=== PATIENT | female | born 1955 | race African-American/Black ===

== ENCOUNTER → 2023-06-01 16:45 | Outpatient (REF) | payer MEDICARE, OTHER, SELFPAY | LOC: HWWDC 16:45 | PROVIDERS: ATTENDING PHYSICIAN Internal Medicine | DX: Z12.31 Encounter for screening mammogram for malignant neoplasm of breast (principal) | CPT/HCPCS: 77063; 77067 ==

== ENCOUNTER → 2023-10-06 10:03 | Outpatient (REF) | payer MEDICARE, OTHER, SELFPAY | LOC: HWRAD 10:03 | PROVIDERS: ATTENDING PHYSICIAN Internal Medicine; FAMILY PHYSICIAN Internal Medicine | DX: M25.511 Pain in right shoulder (principal) | CPT/HCPCS: 73030 ==

== ENCOUNTER → 2024-03-14 10:30 | Outpatient (REF) | payer MEDICARE, OTHER, SELFPAY | LOC: RAD 10:30 | PROVIDERS: ATTENDING PHYSICIAN Psychiatry & Neurology Neurology | DX: M54.9 Dorsalgia, unspecified (principal); G47.00 Insomnia, unspecified; F32.A Depression, unspecified; F43.9 Reaction to severe stress, unspecified; M54.2 Cervicalgia | CPT/HCPCS: 78306; A9503 ==

== ENCOUNTER 2024-05-15 06:20 | Day surgery (SDC) | payer MEDICARE, OTHER, SELFPAY | END 2024-05-15 13:06 | disposition home or self-care (01) | LOC: GI 06:20 | PROVIDERS: ATTENDING PHYSICIAN Internal Medicine Gastroenterology | DX: Z12.11 Encounter for screening for malignant neoplasm of colon (principal); K64.8 Other hemorrhoids; K22.89 Other specified disease of esophagus; D12.2 Benign neoplasm of ascending colon; K29.70 Gastritis, unspecified, without bleeding; Z87.11 Personal history of peptic ulcer disease; Z86.0100 Personal history of colon polyps, unspecified | CPT/HCPCS: 45390; 43239; 88305; 88342 ==

== ENCOUNTER 2024-05-15 16:44 | Emergency (ER) | payer MEDICARE, OTHER, SELFPAY ==
[2024-05-15 16:46] VITALS: BP 141/75
[2024-05-15 17:02] VITALS: BMI 24.6
[2024-05-15 17:09] VITALS: BP 98/62
[2024-05-15 17:15] VITALS: BP 108/76
[2024-05-15] MEDS: TYLENOL 1000 MG PO (17:18)
--- NOTE | 2024-05-15 17:21 | ED.GENMED ---
History of Present Illness
<Coral May REGRINDER - Last Filed: 05/15/24 21:40>
General
Chief Complaint: Rectal Bleeding
Source: patient
Exam Limitations: none
Time Seen by Provider: 05/15/24 16:56
Nursing documentation reviewed up to this point in time: agreed with
History of Present Illness
History of Present Illness:
69 yo female with hx of Chronic Pain on Percocet TID, Baclofen, Gabapentin, Lidocaine patch, Remeron HS, had colonoscopy [address] Hauser, was told she has a large polyp and only part of it was able to be removed. Went home, ate lunch,
had a bloody BM (picture of dark blood and large amount sediment/clot in toilet). Notified GI of this. Then had two more similar episodes and came here. She had a 4th episode in [place] 10 minutes ago. In past hour she has developed generalized crampy
abdominal pains. Denies CP, SOB, lightheadedness.
Past History
<Coral May, REGRINDER - Last Filed: 05/15/24 21:40>
Past History
ED Past Medical History: Other (chronic neck and back pain on oxy and baclofen, Neurontin, Lidocaine patch)
ED Past Surgical History: Gynecological and Orthopedic
Social History
Tobacco: Smoker
Alcohol: None
Personal: Single
Living: with roommate
Employment: Retired
Review of Systems
<Coral May, REGRINDER - Last Filed: 05/15/24 21:40>
Review of Systems
Allergies reviewed?: Yes
All Other Systems: ROS reviewed and negative except as documented in HPI and ROS
Constitutional: Denies fever or fatigue
Respiratory: Denies trouble breathing
Cardiac: Denies chest pain
ABD/GI: Reports abdominal pain (cramping pains) and bloody stools; Denies nausea or vomiting
: Denies dysuria or difficulty voiding
Musculoskeletal: Reports neck pain (Chronic) and back pain (Chronic)
Skin: Reports no symptoms
Neurological: Denies dizzy or weakness
Phy Exam
<Coral May, REGRINDER - Last Filed: 05/15/24 21:40>
Physical Exam
Physical Exam:
GENERAL: No acute distress. A&Ox3.
CONSTITUTIONAL: Afebrile.
EYES: clear, conjunctivae normal
ENMT: moist mucus membranes
RESPIRATORY: Regular respirations, nonlabored, lungs clear.
CARDIOVASCULAR: Regular rate and rhythm, no murmurs, no rubs.
GI: Soft, generally mildly tender to palpation, nondistended, normal BS
MUSCULOSKELETAL: Moves with ease. Well perfused.
SKIN: Warm, dry, pink
PSYCH: Normal mood and affect. Well kept, interactive and appropriate
NEUROLOGIC: Awake, alert and oriented. No focal neurological deficits
Course
<Coral May, REGRINDER - Last Filed: 05/15/24 21:40>
Orders/Labs/Results
Orders:
Orders
05/15/24 17:11
Acetaminophen [Tylenol] 1,000 mg PO NOW STA
05/15/24 17:22
Type+Screen Urgent
Complete Blood Count/With Diff Urgent
Comprehensive Metabolic Panel Urgent
05/15/24 18:12
ABO2 Urgent
BBK Wristband Number:
Associate notified that ABO2 has been ordered: [id number]
Date: 05/15/24
Time: 17:34
Senior Investment Manager ID: [id number]
Abnormal Lab Results
05/15/24
17:22
MPV 11.7 H fL
(7.4-10.4)
Chloride 108 H mmol/L
(98-107)
Calcium 10.7 H mg/dl
(8.4-10.2)
Total Protein 8.4 H g/dl
(6.3-8.2)
Albumin 5.3 H g/dl
(3.5-5.0)
05/15/24 17:22
05/15/24 17:22
Vital Signs
Initial and Last Documented VS:
Initial Vital Signs
Temp Pulse Resp BP Pulse Ox
98.0 F 107 20 141/75 98
05/15/24 16:46 05/15/24 16:46 05/15/24 16:46 05/15/24 16:46 05/15/24 16:46
Last Documented Vital Signs
Temp Pulse Resp BP Pulse Ox
98.0 F 98 20 98/70 98
05/15/24 16:46 05/15/24 18:50 05/15/24 16:46 05/15/24 18:00 05/15/24 18:51
Enedelialt;Chris Short, DO - Last Filed: 05/15/24 17:47>
Orders/Labs/Results
Orders:
Orders
05/15/24 17:11
Acetaminophen [Tylenol] 1,000 mg PO NOW STA
05/15/24 17:22
Type+Screen Urgent
Complete Blood Count/With Diff Urgent
Comprehensive Metabolic Panel Urgent
05/15/24 18:12
ABO2 Urgent
BBK Wristband Number:
Associate notified that ABO2 has been ordered: [id number]
Date: 05/15/24
Time: 17:34
Senior Investment Manager ID: [id number]
Abnormal Lab Results
05/15/24
17:22
MPV 11.7 H fL
(7.4-10.4)
Chloride 108 H mmol/L
(98-107)
Calcium 10.7 H mg/dl
(8.4-10.2)
Total Protein 8.4 H g/dl
(6.3-8.2)
Albumin 5.3 H g/dl
(3.5-5.0)
05/15/24 17:22
05/15/24 17:22
Vital Signs
Initial and Last Documented VS:
Initial Vital Signs
Temp Pulse Resp BP Pulse Ox
98.0 F 107 20 141/75 98
05/15/24 16:46 05/15/24 16:46 05/15/24 16:46 05/15/24 16:46 05/15/24 16:46
Last Documented Vital Signs
Temp Pulse Resp BP Pulse Ox
98.0 F 98 20 98/70 98
05/15/24 16:46 05/15/24 18:50 05/15/24 16:46 05/15/24 18:00 05/15/24 18:51
<Coral May, REGRINDER - Last Filed: 05/15/24 21:40>
MDM/Problems Addressed
Differential Diagnosis Includes:
Lower GI bleed, bleeding polyp
MDM/Problems Addressed:
69 yo female with hx of Chronic Pain on Percocet TID, Baclofen, Gabapentin, Lidocaine patch, Remeron HS, had colonoscopy [address] Hauser, was told she has a large polyp and only part of it was able to be removed. Went home, ate lunch,
had a bloody BM (picture of dark blood and large amount sediment/clot in toilet). Notified GI of this. Then had two more similar episodes and came here. She had a 4th episode in [place] 10 minutes ago. In past hour she has developed generalized crampy
abdominal pains. Denies CP, SOB, lightheadedness.
CBC, CMP normal
Vital signs stable
6:45 PM:
Patient has had no further episodes since 4:45 PM
Initially complained of generalized abdominal cramping, this has subsided
Consulted GI Dr. Can who states if no further bleeding, hemodynamic stable then okay to discharge to home.
CC'd Dr. Hauser on the text
Pt stable for discharge
9:00 p.m.
Pt called back, just had another bloody stool. Informed to return to be admitted which she says she will do.
ED Attending Note
<Coral May REGRINDER - Last Filed: 05/15/24 21:40>
-
Portions of this chart may have been created with voice recognition software.� Occasional wrong word or��sound alike� substitutions may have occurred due to the inherent limitations of voice recognition software.
<Chris Short DO - Last Filed: 05/15/24 17:47>
ED Attending Note
Patient seen and examined by attending physician: Yes
I performed the substantive portion of visit, reviewed & personally made and approve the management plan that is documented in note by myself or HORACE.: Yes
ED Attending Note:
Seen with REGRINDER agree with assessment and plan status post C-scope, with rectal bleeding
Discharge Plan
Departure
Patient Disposition: Home (Routine Discharge)
Date of Disposition: 05/15/24
Time of Disposition: 18:48
Patient with high blood pressure during this ER visit?: No
Condition: Good
Discharge Problem:
RB (rectal bleeding)
Instructions: Bloody Stools, Adult ED
Prescriptions:
No Action
gabapentin 600 mg Tablet
600 mg PO BID
lidocaine 4 % Adhesive Patch,Medicated
1 patch TOPICAL DAILYPRN PRN (Reason: mild pain)
oxycodone-acetaminophen 5-325 mg Tablet
1 tab PO TID
baclofen 10 mg Tablet
10 mg PO BID
mirtazapine 15 mg Tablet
15 mg PO HS
hydroxyzine pamoate 25 mg Capsule
25 mg PO BID
Referrals:
Jayne Hauser MD [Active] - Tomorrow
Bhavin Bustillos MD [Family Provider] -
Activity Restrictions/Additional Instructions:
As we discussed, there is no sign of significant bleeding according to your blood work today.
Your blood pressure is stable
I spoke with the GI case consultant doctor who agrees, you're ok to go home.
Don't take Pepto Bismol as it can turn your stool black and cloud any further bleeding.
Maalox would be ok
Call Dr. Willis office tomorrow and report if you've had any further bleeding.
Return here immediately for worsening rectal bleeding, worsening abdominal pain, feeling lightheaded, or feeling worse in any way
Interventions
Interventions:
*Risk Screen - Suicide Last Done: 05/15/24 16:46
*General Assessment Last Done: 05/15/24 17:10
*Neglect/Abuse Screening Last Done: 05/15/24 17:10
*ED- Fall Risk Assessment Last Done: 05/15/24 17:10
*ED COVID-19 Vaccine History Last Done: 05/15/24 17:10
*Nursing Disposition Last Done: 05/15/24 19:05
TG-Ejyelm-Tyrnldbsxw Assessment Last Done: 05/15/24 17:10
ED- Cardiac Assessment Last Done: 05/15/24 17:10
ED- Pulmonary Assessment Last Done: 05/15/24 17:10
Discharge Date and Time
Discharge Date/Time: 05/15/24 19:05
Print Language: IVORIAN
[2024-05-15 17:32] LABS: % Basophils 0.6 % (0-2); % Eosinophils 1.6 % (0-6); % Immature Granulocytes 0.3 % (0-0.5); % Lymphocytes 41.5 % (20.5-51.1); % Monocytes 9.1 % (1.7-9.3); % Neutrophils 46.9 % (42.2-75.2); Absolute Eosinophils 0.1 10^3/uL (0-0.7); Absolute Lymphocytes 2.8 10^3/uL (1.2-3.4); Absolute Monocytes 0.6 10^3/uL (0.1-0.6); Absolute Neutrophils 3.2 10^3/uL (1.4-6.5); Hematocrit 40.5 % (37.0-47.0); Hemoglobin 13.8 g/dL (12.0-16.0); Mean Corp Hgb Conc. 34.1 g/dL (33.0-37.0); Mean Corpuscular Hgb 30.1 pg (27.0-31.0); Mean Corpuscular Volume 88.2 fL (81.0-99.0); Mean Platelet Volume 11.7 fL (7.4-10.4); Nucleated Red Blood Cells % 0 %; Platelet Count 250 10^3/uL (130-400); Red Blood Cell Count 4.59 10^6/uL (4.20-5.40); Red Cell Dist. Width 13.5 % (11.5-14.5); White Blood Cell Count 6.8 10^3/uL (4.8-10.8)
[2024-05-15 17:47] LABS: ALT (SGPT) 20 U/L (0-35); AST (SGOT) 22 U/L (14-36); Albumin 5.3 g/dl (3.5-5.0); Alkaline Phosphatase 122 U/L (38-126); Blood Urea Nitrogen 11 mg/dl (7-17); Calcium 10.7 mg/dl (8.4-10.2); Carbon Dioxide 22 mmol/L (22-30); Chloride 108 mmol/L (98-107); Estimated Creatinine Clearance 68 ml/min; Glucose 99 mg/dl (70-99); Potassium 4.2 mmol/L (3.5-5.1); Sodium 141 mmol/L (135-145); Total Bilirubin 0.5 mg/dl (0.2-1.3); Total Protein 8.4 g/dl (6.3-8.2); eGFR > 60.00
[2024-05-15 18:00] VITALS: BP 98/70
== END 2024-05-15 19:05 | disposition home or self-care (01) ==
LOC: EMR 16:44
PROVIDERS: Registered Nurse; EMERGENCY PHYSICIAN Emergency Medicine; FAMILY PHYSICIAN Psychiatry & Neurology Neurology
DX: K92.1 Melena (principal); F17.200 Nicotine dependence, unspecified, uncomplicated; Z79.891 Long term (current) use of opiate analgesic
CPT/HCPCS: 99283; 88305; 80053; 85025; 86850; 86900; 86901; 88342

== ENCOUNTER 2024-05-15 21:26 | Emergency (ER) | payer MEDICARE, OTHER, SELFPAY ==
[2024-05-15 21:28] VITALS: BP 124/78
--- NOTE | 2024-05-15 21:41 | ED.GENMED ---
History of Present Illness
General
Chief Complaint: Rectal Bleeding
Source: patient
Exam Limitations: none
Time Seen by Provider: 05/15/24 21:40
Nursing documentation reviewed up to this point in time: agreed with
History of Present Illness
History of Present Illness:
69-year-old female who was here earlier tonight for rectal bleeding after colonoscopy earlier today called me back at 9 PM saying she had another large bloody stool. I informed her to come in to be admitted
Past History
Past History
ED Past Medical History: Other (chronic neck and back pain on oxy and baclofen, Neurontin, Lidocaine patch)
ED Past Surgical History: Gynecological and Orthopedic
Social History
Tobacco: Smoker
Alcohol: None
Personal: Single
Living: with roommate
Employment: Retired
Review of Systems
Review of Systems
Allergies reviewed?: Yes
All Other Systems: ROS reviewed and negative except as documented in HPI and ROS
Constitutional: Denies fever
Respiratory: Denies trouble breathing
Cardiac: Denies chest pain
ABD/GI: Reports bloody stools; Denies abdominal pain, nausea or vomiting
: Denies dysuria, frequency or difficulty voiding
Musculoskeletal: Reports no symptoms
Skin: Reports no symptoms
Neurological: Reports no symptoms
Phy Exam
Physical Exam
Physical Exam:
GENERAL: No acute distress. A&Ox3.
CONSTITUTIONAL: Afebrile.
EYES: clear, conjunctivae normal
ENMT: moist mucus membranes, Pharynx nl
RESPIRATORY: Regular respirations, nonlabored, lungs clear.
CARDIOVASCULAR: Regular rate and rhythm, no murmurs, no rubs.
GI: Soft, nontender, normal BS
MUSCULOSKELETAL: Moves with ease. Well perfused.
SKIN: Warm, dry, pink
PSYCH: Normal mood and affect. Well kept, interactive and appropriate
NEUROLOGIC: Awake, alert and oriented. No focal neurological deficits
Course
Orders/Labs/Results
Orders:
Orders
05/15/24 21:46
Consult Gastroenterology [GASTROINTESTINAL CONSULT] Urgent
Consulting Provider: Greg Fuentes
Was physician already notified: Yes
Reason for consult: Rectal bleed post colonoscopy
Vital Signs
Initial and Last Documented VS:
Initial Vital Signs
Temp Pulse Resp BP Pulse Ox
98.2 F 102 18 124/78 98
05/15/24 21:28 05/15/24 21:28 05/15/24 21:28 05/15/24 21:28 05/15/24 21:28
Last Documented Vital Signs
Temp Pulse Resp BP Pulse Ox
98.2 F 102 18 124/78 98
05/15/24 21:28 05/15/24 21:28 05/15/24 21:28 05/15/24 21:28 05/15/24 21:28
MDM/Problems Addressed
MDM/Problems Addressed:
69-year-old female who was here earlier tonight for rectal bleeding after colonoscopy earlier today called me back at 9 PM saying she had another large bloody stool. I informed her to come in to be admitted
Hospitalist notified of admission, GI notified.
Pt is stable.
10:30 p.m.
Pt was in room 3, she told Charge nurse she wanted to leave
Charge nurse Ulices just informed me pt left AMA.
*Critical Care Note
Total Time (30-74mins, 75-104mins- exclusive of procedures): Not Applicable
ED Attending Note
-
Portions of this chart may have been created with voice recognition software.� Occasional wrong word or��sound alike� substitutions may have occurred due to the inherent limitations of voice recognition software.
Discharge Plan
Departure
Patient Disposition: Admit
Date of Disposition: 05/15/24
Time of Disposition: 21:44
Admit to: Med/Surg
Presentation/result/management discussed w/ accepting MD/DO: Hospitalist
Condition: Fair
Discharge Problem:
RB (rectal bleeding)
Prescriptions:
No Action
gabapentin 600 mg Tablet
600 mg PO BID
lidocaine 4 % Adhesive Patch,Medicated
1 patch TOPICAL DAILYPRN PRN (Reason: mild pain)
oxycodone-acetaminophen 5-325 mg Tablet
1 tab PO TID
baclofen 10 mg Tablet
10 mg PO BID
mirtazapine 15 mg Tablet
15 mg PO HS
hydroxyzine pamoate 25 mg Capsule
25 mg PO BID
Interventions
Interventions:
*Risk Screen - Suicide Last Done: 05/15/24 21:28
*General Assessment Last Done: 05/15/24 21:28
*Neglect/Abuse Screening Last Done: 05/15/24 21:28
*ED- Fall Risk Assessment Last Done: 05/15/24 21:28
*ED COVID-19 Vaccine History Last Done: 05/15/24 21:28
Discharge Date and Time
Print Language: JAPANESE
== END 2024-05-15 22:39 | disposition left against medical advice (07) ==
LOC: EMR 21:26
PROVIDERS: CONSULT PHYSICIAN Internal Medicine Gastroenterology; EMERGENCY PHYSICIAN Emergency Medicine
DX: K92.1 Melena (principal); F17.200 Nicotine dependence, unspecified, uncomplicated
CPT/HCPCS: 99282

== ENCOUNTER → 2024-06-26 11:10 | Outpatient (REF) | payer MEDICARE, OTHER, SELFPAY ==
[2024-06-26 15:55] LABS: % Basophils 0.5 % (0-2); % Eosinophils 0.9 % (0-6); % Immature Granulocytes 0.4 % (0-0.5); % Lymphocytes 25.1 % (20.5-51.1); % Monocytes 8.4 % (1.7-9.3); % Neutrophils 64.7 % (42.2-75.2); Absolute Basophils 0.1 10^3/uL (0-0.2); Absolute Eosinophils 0.1 10^3/uL (0-0.7); Absolute Lymphocytes 2.4 10^3/uL (1.2-3.4); Absolute Monocytes 0.8 10^3/uL (0.1-0.6); Absolute Neutrophils 6.1 10^3/uL (1.4-6.5); Hematocrit 39.2 % (37.0-47.0); Hemoglobin 13.5 g/dL (12.0-16.0); Mean Corp Hgb Conc. 34.4 g/dL (33.0-37.0); Mean Corpuscular Hgb 30.2 pg (27.0-31.0); Mean Corpuscular Volume 87.7 fL (81.0-99.0); Mean Platelet Volume 12.1 fL (7.4-10.4); Nucleated Red Blood Cells % 0 %; Platelet Count 178 10^3/uL (130-400); Red Blood Cell Count 4.47 10^6/uL (4.20-5.40); Red Cell Dist. Width 13.2 % (11.5-14.5); White Blood Cell Count 9.5 10^3/uL (4.8-10.8)
[2024-06-26 16:05] LABS: Erythrocyte Sed Rate 2 mm/hour (0-20)
[2024-06-26 16:06] LABS: C-Reactive Protein < 5.00 mg/L (0.0-10.00)
[2024-06-26 16:10] LABS: ALT (SGPT) 18 U/L (0-35); AST (SGOT) 21 U/L (14-36); Albumin 4.9 g/dl (3.5-5.0); Alkaline Phosphatase 136 U/L (38-126); Blood Urea Nitrogen 14 mg/dl (7-17); Calcium 10.3 mg/dl (8.4-10.2); Carbon Dioxide 21 mmol/L (22-30); Chloride 111 mmol/L (98-107); Glucose 88 mg/dl (70-99); Potassium 4.2 mmol/L (3.5-5.1); Sodium 142 mmol/L (135-145); Total Bilirubin 0.5 mg/dl (0.2-1.3); Total Protein 7.7 g/dl (6.3-8.2); eGFR > 60.00
[2024-06-26 16:36] LABS: TSH 1.09 uIU/ml (0.47-4.68)
[2024-06-26 17:07] LABS: Creatine Phosphokinase 74 U/L (30-135)
[2024-06-27 13:23] LABS: Rheumatoid Agglutinin Less Than 10 IU (<10 IU)
[2024-06-29 02:12] LABS: CCP Antibody IgG/IgA 2 Units (0-19)
[2024-06-29 03:15] LABS: ANA, IgG Reflex to HEp-2 None Detected (None Detected)
== END ==
LOC: HWLAB 11:10
PROVIDERS: ATTENDING PHYSICIAN Student in an Organized Health Care Education/Training Program
DX: M25.50 Pain in unspecified joint (principal); R53.82 Chronic fatigue, unspecified; Z13.1 Encounter for screening for diabetes mellitus; Z13.220 Encounter for screening for lipoid disorders
CPT/HCPCS: 80053; 82550; 84443; 85025; 85652; 86038; 86140; 86200; 86430

== ENCOUNTER 2024-07-19 12:27 | Emergency (ER) | payer MEDICARE, OTHER, SELFPAY ==
[2024-07-19 12:29] VITALS: BP 128/80
--- NOTE | 2024-07-19 12:42 | ED.GENMED ---
History of Present Illness
General
Chief Complaint: Flank Pain
Source: patient
Exam Limitations: none
Time Seen by Provider: 07/19/24 12:36
Nursing documentation reviewed up to this point in time: agreed with
History of Present Illness
History of Present Illness:
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 Denies fever/chills, denies abdominal pain
Past History
Past History
ED Past Medical History: Other (chronic neck and back pain on oxy and baclofen, Neurontin, Lidocaine patch)
ED Past Surgical History: Gynecological and Orthopedic
Social History
Tobacco: Smoker
Alcohol: None
Personal: Single
Living: with roommate
Employment: Retired
Review of Systems
Review of Systems
Allergies reviewed?: Yes
All Other Systems: ROS reviewed and negative except as documented in HPI and ROS
Constitutional: Denies fever or chills
: Reports flank pain (left); Denies dysuria, frequency, difficulty voiding or urgency
Musculoskeletal: Reports other (chronic back pain)
Skin: Reports no symptoms
Phy Exam
Physical Exam
Physical Exam:
GENERAL: Mild distress due to left flank pain, difficulty staying still due to the pain. A&Ox3.
CONSTITUTIONAL: Afebrile.
EYES: clear, conjunctivae normal
ENMT: moist mucus membranes
RESPIRATORY: Regular respirations, nonlabored, lungs clear.
CARDIOVASCULAR: Regular rate and rhythm, no murmurs, no rubs.
GI: Soft, nontender, normal BS
MUSCULOSKELETAL: Left flank pain. Moves with ease. Well perfused.
SKIN: Warm, dry, normal
PSYCH: Anxious mood and affect. Well kept, interactive and appropriate
NEUROLOGIC: Awake, alert and oriented. No focal neurological deficits
Course
Orders/Labs/Results
Orders:
Orders
07/19/24 12:42
CT Abd/pel Without Iv Or Oral Urgent
Comment:
Reason For Exam: L flank pain
0.9% Sodium Chloride 500 ml [Nss] 500 ml IV BOLUS
HYDROmorphone [Dilaudid] 0.5 mg IV NOW STA
Ketorolac [Toradol] 15 mg IV NOW STA
07/19/24 13:12
Complete Blood Count/With Diff Urgent
Comprehensive Metabolic Panel Urgent
Urinalysis Reflex To Culture Urgent
Date Specimen was Collected: 07/19/24
Time Specimen was Collected: 12:59
Urine Microscopic Reflex Cult Urgent
Abnormal Lab Results
07/19/24
13:12
RBC 4.09 L 10^6/uL
(4.20-5.40)
Hct 36.1 L %
(37.0-47.0)
MPV 11.9 H fL
(7.4-10.4)
Chloride 111 H mmol/L
(98-107)
Carbon Dioxide 31 H mmol/L
(22-30)
Glucose 105 H mg/dl
(70-99)
Ur Occult Blood Reflex 4+ A
(Negative)
Urine RBC >100 A /HPF
(0-2)
Urine Albumin (Reflex) 2+ A
(Neg - Trace)
07/19/24 13:12
07/19/24 13:12
Vital Signs
Initial and Last Documented VS:
Initial Vital Signs
Temp Pulse Resp BP Pulse Ox
98.4 F 92 15 128/80 98
07/19/24 12:29 07/19/24 12:29 07/19/24 12:29 07/19/24 12:29 07/19/24 12:29
Last Documented Vital Signs
Temp Pulse Resp BP Pulse Ox
98.4 F 76 25 91/77 98
07/19/24 12:29 07/19/24 14:03 07/19/24 14:03 07/19/24 14:03 07/19/24 14:03
MDM/Problems Addressed
Differential Diagnosis Includes:
kidney stone, UTI
MDM/Problems Addressed:
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 Denies fever/chills, denies abdominal pain
Afebrile, states pain 10/10, can't sit still. Is nauseous
1:45 p.m.
CBC, CMP with no clinically significant abnormality
UA with 4+ blood and 2+ albumin, negative leukocytes or nitrites, >100 RBC, no WBC
Good pain relief after medications
CT abd/pelvis plain: Radiology report read: IMPRESSION:
1. MODERATE ACUTE LEFT HYDROURETERONEPHROSIS secondary to a 4 mm obstructing calculus at the left ureterovesical junction.
2. Mild acute diverticulitis in the proximal sigmoid colon.
3. Moderate chronic colitis (possibly secondary to chronic infection or inflammatory bowel disease).
4. Mild hepatomegaly.
5. 2.1 cm subserosal uterine leiomyoma.
6. 2.0 cm right adrenal adenoma.
7. Moderate lower lumbar facet joint arthrosis.
Reviewed result w patient and gave her copy of report.
Patient states she is not surprised about the mild diverticulitis, states she had a colonoscopy recently with a polyp that was 'hard to get,' she states she has a follow-up appointment with Dr. Manzo GI in 1 week.
1:15 PM: Patient remains pain-free. Ambulated out with normal gait.
*Critical Care Note
Total Time (30-74mins, 75-104mins- exclusive of procedures): Not Applicable
ED Attending Note
-
Portions of this chart may have been created with voice recognition software.� Occasional wrong word or��sound alike� substitutions may have occurred due to the inherent limitations of voice recognition software.
Discharge Plan
Departure
Patient Disposition: Home (Routine Discharge)
Date of Disposition: 07/19/24
Time of Disposition: 14:07
Patient with high blood pressure during this ER visit?: No
Condition: Good
Discharge Problem:
Calculus of distal left ureter
Instructions: Kidney Stones (DC), How to Strain Your Urine, Narcotic Pain Medication
Prescriptions:
New
hydrocodone-acetaminophen 5-325 mg tablet
1 tab PO Q6H PRN (Reason: Pain) Qty: 5 0RF
No Action
gabapentin 600 mg Tablet
600 mg PO BID
lidocaine 4 % Adhesive Patch,Medicated
1 patch TOPICAL DAILYPRN PRN (Reason: mild pain)
oxycodone-acetaminophen 5-325 mg Tablet
1 tab PO TID
baclofen 10 mg Tablet
10 mg PO BID
mirtazapine 15 mg Tablet
15 mg PO HS
hydroxyzine pamoate 25 mg Capsule
25 mg PO BID
Referrals:
Jovany, GI doctor [Other] - Keep scheduled appt
Brandan Bui MD [Family Provider] -
Pedro Luis Cali MD [Active] - Call in 1-3 days for appt
Activity Restrictions/Additional Instructions:
As we discussed, ibuprofen 600 mg for mild to moderate pain and I sent a prescription to your pharmacy for hydrocodone to use if needed for worse pain.
Call the urology office Monday morning and asked them when they want to see you for follow-up.
Keep your appointment with your GI doctor as your CAT scan showed you had mild diverticulitis.
Return here immediately for fever, chills, vomiting, worsening pain or feeling sicker in any way
Interventions
Interventions:
*Risk Screen - Suicide Last Done: 07/19/24 12:29
*General Assessment Last Done: 07/19/24 12:29
*Neglect/Abuse Screening Last Done: 07/19/24 12:29
*ED- Fall Risk Assessment Last Done: 07/19/24 13:09
*ED COVID-19 Vaccine History Last Done: 07/19/24 13:09
*Nursing Disposition Last Done: 07/19/24 14:15
AE-Qwuikn-Faspcqwopm Assessment Last Done: 07/19/24 12:50
ED-Female Genitourinary Assessment Last Done: 07/19/24 12:50
Discharge Date and Time
Discharge Date/Time: 07/19/24 14:48
Print Language: CITIZEN OF [place]
[2024-07-19] MEDS: DILAUDID 0.5 MG IV (13:04)
[2024-07-19] MEDS: NSS 500 IV (13:05)
[2024-07-19] MEDS: TORADOL 15 MG IV (13:05)
[2024-07-19 13:09] VITALS: BMI 25.7
[2024-07-19 13:12] VITALS: BP 117/64
[2024-07-19 13:28] LABS: % Basophils 0.5 % (0-2); % Eosinophils 0.8 % (0-6); % Immature Granulocytes 0.5 % (0-0.5); % Lymphocytes 35.3 % (20.5-51.1); % Monocytes 7.1 % (1.7-9.3); % Neutrophils 55.8 % (42.2-75.2); Absolute Eosinophils 0.1 10^3/uL (0-0.7); Absolute Lymphocytes 2.2 10^3/uL (1.2-3.4); Absolute Monocytes 0.5 10^3/uL (0.1-0.6); Absolute Neutrophils 3.5 10^3/uL (1.4-6.5); Hematocrit 36.1 % (37.0-47.0); Mean Corp Hgb Conc. 33.2 g/dL (33.0-37.0); Mean Corpuscular Hgb 29.3 pg (27.0-31.0); Mean Corpuscular Volume 88.3 fL (81.0-99.0); Mean Platelet Volume 11.9 fL (7.4-10.4); Nucleated Red Blood Cells % 0 %; Platelet Count 204 10^3/uL (130-400); Red Blood Cell Count 4.09 10^6/uL (4.20-5.40); Red Cell Dist. Width 13.1 % (11.5-14.5); White Blood Cell Count 6.3 10^3/uL (4.8-10.8)
[2024-07-19 13:36] LABS: Urine Albumin 2+ (Neg - Trace); Urine Bilirubin Negative (Negative); Urine Character Slightly Cloudy (Clear); Urine Color Yellow; Urine Glucose Negative (Negative); Urine Ketone Negative (Negative); Urine Leukocyte Negative (Negative); Urine Nitrite Negative (Negative); Urine Occult Blood 4+ (Negative); Urine Urobilinogen Negative (Neg - 1+)
[2024-07-19 13:38] LABS: ALT (SGPT) 19 U/L (0-35); AST (SGOT) 22 U/L (14-36); Albumin 4.4 g/dl (3.5-5.0); Alkaline Phosphatase 110 U/L (38-126); Blood Urea Nitrogen 8 mg/dl (7-17); Calcium 9.8 mg/dl (8.4-10.2); Carbon Dioxide 31 mmol/L (22-30); Chloride 111 mmol/L (98-107); Estimated Creatinine Clearance 80 ml/min; Glucose 105 mg/dl (70-99); Potassium 3.8 mmol/L (3.5-5.1); Sodium 145 mmol/L (135-145); Total Bilirubin 0.4 mg/dl (0.2-1.3); Total Protein 7.1 g/dl (6.3-8.2); eGFR > 60.00
[2024-07-19 13:45] LABS: Urine Squamous Cell 26-30 /LPF (Few)
[2024-07-19 13:47] LABS: Urine Red Blood Cell >100 /HPF (0-2)
[2024-07-19 14:03] VITALS: BP 91/77
== END 2024-07-19 14:48 | disposition home or self-care (01) ==
LOC: EMR 12:27
PROVIDERS: Registered Nurse; EMERGENCY PHYSICIAN Emergency Medicine; FAMILY PHYSICIAN Internal Medicine
DX: N13.2 Hydronephrosis with renal and ureteral calculous obstruction (principal); F17.200 Nicotine dependence, unspecified, uncomplicated
CPT/HCPCS: 99285; 96374; 96375; 96361; 74176; 80053; 81003; 81015; 85025

== ENCOUNTER 2024-09-19 06:10 | Day surgery (SDC) | payer MEDICARE, OTHER, SELFPAY ==
[2024-09-19 12:33] VITALS: BMI 24.5
[2024-09-19 12:35] VITALS: BMI 24.5
[2024-09-19 12:36] VITALS: BP 121/85
[2024-09-19 14:15] VITALS: BP 114/77
[2024-09-19 14:30] VITALS: BP 133/79
[2024-09-19 14:45] VITALS: BP 128/83
== END 2024-09-19 15:00 | disposition home or self-care (01) ==
LOC: SDS 06:10
PROVIDERS: ATTENDING PHYSICIAN Internal Medicine Gastroenterology
DX: D12.2 Benign neoplasm of ascending colon (principal); D17.5 Benign lipomatous neoplasm of intra-abdominal organs; Z98.890 Other specified postprocedural states
CPT/HCPCS: 45390; 88305

== ENCOUNTER → 2024-09-25 13:42 | Outpatient (REF) | payer MEDICARE, OTHER, SELFPAY | LOC: EMG 13:42 | PROVIDERS: ATTENDING PHYSICIAN Orthopaedic Surgery; FAMILY PHYSICIAN Internal Medicine | DX: R20.0 Anesthesia of skin (principal); G56.01 Carpal tunnel syndrome, right upper limb | CPT/HCPCS: 95886; 95909 ==

== ENCOUNTER → 2024-10-08 14:40 | Outpatient (REF) | payer MEDICARE, OTHER, SELFPAY | LOC: HWWDC 14:40 | PROVIDERS: ATTENDING PHYSICIAN Student in an Organized Health Care Education/Training Program; FAMILY PHYSICIAN Internal Medicine | DX: Z12.31 Encounter for screening mammogram for malignant neoplasm of breast (principal) | CPT/HCPCS: 77063; 77067 ==

== ENCOUNTER → 2024-10-09 16:14 | Outpatient (REF) | payer MEDICARE, OTHER, SELFPAY | LOC: REG 16:14 | PROVIDERS: ATTENDING PHYSICIAN Orthopaedic Surgery; FAMILY PHYSICIAN Internal Medicine | DX: Z01.818 Encounter for other preprocedural examination (principal) | CPT/HCPCS: 36415; 93005 ==

== ENCOUNTER → 2024-10-10 10:59 | Outpatient (REF) | payer MEDICARE, OTHER, SELFPAY ==
[2024-10-10 15:12] LABS: Hematocrit 37.6 % (37.0-47.0); Hemoglobin 12.8 g/dL (12.0-16.0); Mean Corp Hgb Conc. 34.0 g/dL (33.0-37.0); Mean Corpuscular Volume 87.0 fL (81.0-99.0); Nucleated Red Blood Cells % 0 %; Platelet Count 199 10^3/uL (130-400); Red Cell Dist. Width 13.3 % (11.5-14.5)
[2024-10-10 15:21] LABS: Urine Character Cloudy (Clear)
[2024-10-10 15:26] LABS: ALT (SGPT) 14 U/L (0-35); AST (SGOT) 18 U/L (14-36); Albumin 4.7 g/dl (3.5-5.0); Alkaline Phosphatase 113 U/L (38-126); Blood Urea Nitrogen 13 mg/dl (7-17); Calcium 10.3 mg/dl (8.4-10.2); Carbon Dioxide 25 mmol/L (22-30); Chloride 109 mmol/L (98-107); Glucose 95 mg/dl (70-99); HDL Cholesterol 53 mg/dl; LDL Cholesterol, Calculated 161 mg/dl; Potassium 4.2 mmol/L (3.5-5.1); Sodium 140 mmol/L (135-145); Total Protein 7.6 g/dl (6.3-8.2); Very Low Density Lipoprotein 36 mg/dl (0-30); eGFR > 60.00
[2024-10-10 15:39] LABS: Vitamin D, 25-OH*** 18.5 ng/mL (30-80)
[2024-10-10 15:50] LABS: Urine Squamous Cell 0-2 /LPF (Few)
[2024-10-10 15:52] LABS: Urine Red Blood Cell 0-2 /HPF (0-2)
[2024-10-10 15:53] LABS: TSH 0.83 uIU/ml (0.47-4.68)
[2024-10-11 08:57] LABS: Glycohemoglobin (HgbA1c) 5.7 % (4.0-5.6)
== END ==
LOC: HWLAB 10:59
PROVIDERS: ATTENDING PHYSICIAN Orthopaedic Surgery; FAMILY PHYSICIAN Internal Medicine
DX: Z01.818 Encounter for other preprocedural examination (principal); R52 Pain, unspecified; Z11.59 Encounter for screening for other viral diseases; Z78.0 Asymptomatic menopausal state; M79.601 Pain in right arm; M79.602 Pain in left arm; G37.9 Demyelinating disease of central nervous system, unspecified; G89.29 Other chronic pain; V87.7XXS Person injured in collision between other specified motor vehicles (traffic), sequela; E78.00 Pure hypercholesterolemia, unspecified; E55.9 Vitamin D deficiency, unspecified; F17.210 Nicotine dependence, cigarettes, uncomplicated; R73.9 Hyperglycemia, unspecified
CPT/HCPCS: 36415; 80053; 80061; 81003; 81015; 82306; 83036; 84443; 85025; 87522

== ENCOUNTER 2024-10-12 14:50 | Emergency (ER) | payer MEDICARE, OTHER, SELFPAY ==
[2024-10-12 15:08] VITALS: BP 126/70
[2024-10-12 15:39] LABS: COVID-19 Antigen Negative (Negative)
[2024-10-12] MEDS: REGLAN 10 MG IV (19:19)
[2024-10-12] MEDS: TORADOL 15 MG IV (19:19)
[2024-10-12] MEDS: NSS 1000 IV (19:19)
[2024-10-12 19:20] LABS: Hematocrit 38.5 % (37.0-47.0); Hemoglobin 13.0 g/dL (12.0-16.0); Mean Corp Hgb Conc. 33.8 g/dL (33.0-37.0); Mean Corpuscular Volume 86.5 fL (81.0-99.0); Nucleated Red Blood Cells % 0 %; Platelet Count 222 10^3/uL (130-400); Red Cell Dist. Width 13.5 % (11.5-14.5)
[2024-10-12 19:31] LABS: Carboxyhemoglobin 4.1 %
[2024-10-12 19:37] VITALS: BMI 24.9
[2024-10-12 19:41] LABS: ALT (SGPT) 16 U/L (0-35); AST (SGOT) 21 U/L (14-36); Albumin 4.8 g/dl (3.5-5.0); Alkaline Phosphatase 119 U/L (38-126); Blood Urea Nitrogen 10 mg/dl (7-17); Calcium 10.3 mg/dl (8.4-10.2); Carbon Dioxide 24 mmol/L (22-30); Chloride 108 mmol/L (98-107); Estimated Creatinine Clearance 80 ml/min; Glucose 74 mg/dl (70-99); Potassium 3.4 mmol/L (3.5-5.1); Sodium 141 mmol/L (135-145); Total Protein 7.5 g/dl (6.3-8.2); eGFR > 60.00
--- NOTE | 2024-10-12 20:01 | ED.GENMED ---
History of Present Illness
General
Chief Complaint: Headache
Source: patient
Exam Limitations: none
Time Seen by Provider: 10/12/24 18:07
Nursing documentation reviewed up to this point in time: agreed with
History of Present Illness
History of Present Illness:
69-year-old female presenting to the emergency department today with concerns of headache that is progressive today described as diffuse achy and sharp. Denies any associated neurologic symptoms or neck pain. Has had some intermittent headaches
over the past few months that have been seemingly progressive over the past week. Denies any upper respiratory symptoms or fevers. A few of her neighbors also had headaches that live in her apartment complex.
Past History
Past History
ED Past Medical History: Other (chronic neck and back pain on oxy and baclofen, Neurontin, Lidocaine patch)
ED Past Surgical History: Gynecological and Orthopedic
Social History
Tobacco: Smoker
Alcohol: None
Personal: Single
Living: with roommate
Employment: Retired
Review of Systems
Review of Systems
Allergies reviewed?: Yes
All Other Systems: ROS reviewed and negative except as documented in HPI and ROS
Phy Exam
Physical Exam
Physical Exam:
GENERAL: Alert , in no apparent distress
EYE: pupils equal and reactive
NECK: Supple, no significant adenopathy.
ENT: o/p clr, mmm.
CARDIAC: Regular rate and rhythm .
LUNGS: Clear breath sounds bilaterally, no acute respiratory distress, no wheezes/rales/rhonchi
ABDOMEN: Soft, without focal tenderness, no r/g, no cvat
NEUROLOGICAL: Alert and oriented, no focal neuro deficits 5 out of 5 upper and lower extremity strength normal sensation with palpating bilaterally normal finger-nose [id number] walking with steady gait. Normal cranial nerve exam
SKIN: Warm and dry, skin intact.
MUSCULOSKELETAL: No edema, well perfused.
PSYCH: Normal and appropriate interaction.
Course
Orders/Labs/Results
Orders:
Orders
10/12/24 15:16
COVID-19 Antigen Urgent
Source: Nasal Swab
10/12/24 18:36
0.9% Sodium Chloride 1000 ml [Nss] 1,000 ml IV BOLUS
Ketorolac [Toradol] 15 mg IV NOW STA
Metoclopramide [Reglan] 10 mg IV NOW STA
10/12/24 18:37
CT Head W/o Iv Contrast Urgent
Comment:
Reason For Exam: MCCARTHY x months, worse today, severe no MCCARTHY hx
10/12/24 18:56
Carboxyhemoglobin Urgent
Complete Blood Count/With Diff Urgent
Comprehensive Metabolic Panel Urgent
Lyme Progressive Urgent
Abnormal Lab Results
10/12/24
18:56
MPV 11.7 H fL
(7.4-10.4)
Absolute Lymphs (auto) 3.8 H 10^3/uL
(1.2-3.4)
Neutrophils % 40.4 L %
(42.2-75.2)
Potassium 3.4 L mmol/L
(3.5-5.1)
Chloride 108 H mmol/L
(98-107)
Calcium 10.3 H mg/dl
(8.4-10.2)
10/12/24 18:56
10/12/24 18:56
Vital Signs
Initial and Last Documented VS:
Initial Vital Signs
Temp Pulse Resp BP Pulse Ox
98.4 F 81 16 126/70 96
10/12/24 15:08 10/12/24 15:08 10/12/24 15:08 10/12/24 15:08 10/12/24 15:08
Last Documented Vital Signs
Temp Pulse Resp BP Pulse Ox
98.4 F 81 16 126/70 99
10/12/24 15:08 10/12/24 15:08 10/12/24 15:08 10/12/24 15:08 10/12/24 20:02
MDM/Problems Addressed
MDM/Problems Addressed:
69-year-old female presenting to the emergency department with concerns of diffuse headache progressive today but has been intermittent over the past few months. On arrival here vital signs are normal patient in no distress but does describe a
severe headache. No associated nausea vomiting numbness or weakness normal neurologic evaluation. Due to the headaches progressive nature CT scan was ordered. She was given medication through the IV for symptoms. Headache fully resolved. Carbon
oxide level normal. She was vies for close ovation follow-up but otherwise did not want to get CT scan at this time. Considering she is asymptomatic and normal neurologic examination I felt that it was safe for close outpatient follow-up. Return
precautions given.
*Pulse Oximetry
SaO2: 99
Nasal Cannula flow liters per minute: 2
Oxygen Mode of Delivery: Room air
Patient hypoxic: no (99)
*Critical Care Note
Total Time (30-74mins, 75-104mins- exclusive of procedures): Not Applicable
ED Attending Note
-
Portions of this chart may have been created with voice recognition software.� Occasional wrong word or��sound alike� substitutions may have occurred due to the inherent limitations of voice recognition software.
Discharge Plan
Departure
Patient Disposition: Home (Routine Discharge)
Date of Disposition: 10/12/24
Time of Disposition: 20:59
Patient with high blood pressure during this ER visit?: No
Condition: Good
Covid-19: Not Applicable
Discharge Problem:
Headache
Instructions: Headache, Adult (DC)
Prescriptions:
No Action
gabapentin 600 mg Tablet
600 mg PO BID
lidocaine 4 % Adhesive Patch,Medicated
1 patch TOPICAL DAILYPRN PRN (Reason: mild pain)
oxycodone-acetaminophen 5-325 mg Tablet
1 tab PO TID
baclofen 10 mg Tablet
10 mg PO BID
mirtazapine 15 mg Tablet
15 mg PO HS
hydroxyzine pamoate 25 mg Capsule
25 mg PO BID
Referrals:
Brandan Bui MD [Family Provider, Internal Medicine]
Activity Restrictions/Additional Instructions:
You came to the emergency department today with concerns of a headache. Here had reassuring assessment. Please follow closely with your outpatient doctors. Return for any worsening, new or concerning symptoms.
Interventions
Interventions:
*Risk Screen - Suicide Last Done: 10/12/24 15:08
*General Assessment Last Done: 10/12/24 15:08
*Neglect/Abuse Screening Last Done: 10/12/24 15:08
*ED- Fall Risk Assessment Last Done: 10/12/24 19:38
*ED COVID-19 Vaccine History Last Done: 10/12/24 19:38
ED- Neurological Assessment Last Done: 10/12/24 19:38
Discharge Date and Time
Print Language: JAPANESE
[2024-10-12 21:14] VITALS: BP 152/78
[2024-10-14 13:13] LABS: Lyme Antibody Screen, EIA Negative (Negative)
== END 2024-10-12 21:20 | disposition home or self-care (01) ==
LOC: EMR 14:50
PROVIDERS: Emergency Medicine; Physician Assistant; EMERGENCY PHYSICIAN Student in an Organized Health Care Education/Training Program; FAMILY PHYSICIAN Internal Medicine
DX: R51.9 Headache, unspecified (principal); M54.2 Cervicalgia; G89.29 Other chronic pain; F17.200 Nicotine dependence, unspecified, uncomplicated
CPT/HCPCS: 99284; 96374; 96375; 80053; 82375; 85025; 86618; 87811

== ENCOUNTER → 2024-11-04 09:50 | Outpatient (REF) | payer MEDICARE, OTHER, SELFPAY | LOC: HWRAD 09:50 | PROVIDERS: ATTENDING PHYSICIAN Physician Assistant; FAMILY PHYSICIAN Internal Medicine; REFERRING PHYSICIAN Psychiatry & Neurology Neurology | DX: R51.9 Headache, unspecified (principal) | CPT/HCPCS: 70450 ==